=== PATIENT | female | born 1965 | race Hispanic/Latino ===

== ENCOUNTER 2017-11-03 18:02 | Emergency (ER) | payer SELFPAY ==
[2017-11-03] MEDS ORDERED: HYDROCODONE/APAP 7.5/325 MG TAB ONE (18:52)
[2017-11-03] MEDS ORDERED: IBUPROFEN 400 MG TAB ONE ×2 (18:52→19:28)
--- NOTE | 2017-11-03 19:08 | RAD REPORT ---
EXAM DESCRIPTION: RAD - Knee Left 3 View - 11/03/2017 6:59 pm CLINICAL HISTORY: Left knee pain FINDINGS: Marked osteoarthritis involves the medial compartment consisting of bone on bone and osteo phytes. A small joint effusion is suspected. An 11 millimeter bony/calcific density inferior to the patella likely represents a loose body. No acute fracture or dislocation is seen . . Edema is present within the subcutaneous tissues
--- NOTE | 2017-11-03 20:05 | RAD REPORT ---
EXAM DESCRIPTION: [facility] [employer]11/03/2017 7:14 pm CLINICAL HISTORY: left leg pain COMPARISON: None. FINDINGS: Left common femoral, superficial femoral, popliteal and posterior tibial veins are compre ssible and demonstrate augmentation. Doppler demonstrates good flow. IMPRESSION: No evidence of deep venous thrombosis involving the left lower extremity.
--- NOTE | 2017-11-03 20:24 | EDPHYS ---
Physician Documentation [facility] Name: Reena Mclean Age: 52 yrs Sex: Female : 1965 Arrival Date: 11/03/2017 Time: 18:05 Bed 23 Private MD: None, None ED Physician Gonzalo Zhao HPI: 11/03 18:19 This 52 yrs old Female presents to ER via Unassigned with complaints of Knee cp Pain. 18:19 The patient presents with pain, that is chronic. cp 18:19 The complaints affect the left knee. Context: the patient can partially bear weight, cp the patient is able to ambulate, with moderate difficulty, Problem is a result from a previous injury: No. Onset: The symptoms/episode began/occurred gradually, and became worse today. Associated signs and symptoms: Pertinent negatives calf tenderness, fever, warmth, injury. Treatment prior to arrival includes: no previous treatment. 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 - Social history:: Smoking status: Patient/guardian denies using tobacco. - Ebola Screening: : Patient negative for fever greater than or equal to 101.5 degrees Fahrenheit, and additional compatible Ebola Virus Disease symptoms Patient denies exposure to infectious person Patient denies travel to an Ebola-affected area in the 21 days before illness onset No symptoms or risks identified at this time. ROS: 18:25 Constitutional: Negative for body aches, chills, fever, poor PO intake. cp 18:25 Eyes: Negative for injury, pain, redness, and discharge. cp 18:25 ENT: Negative for drainage from ear(s), ear pain, sore throat, difficulty swallowing, difficulty handling secretions. 18:25 Cardiovascular: Negative for chest pain, edema, palpitations. 18:25 Respiratory: Negative for cough, shortness of breath, wheezing. 18:25 Abdomen/GI: Negative for abdominal pain, nausea, vomiting, and diarrhea. 18:25 MS/extremity: Positive for pain, swelling, tenderness, of the left knee, Negative for injury or acute deformity, decreased range of motion, paresthesias, rash, warmth. 18:25 Skin: Negative for cellulitis, rash. 18:25 Neuro: Negative for altered mental status, headache, weakness. 18:25 All other systems are negative. Exam: 18:30 Constitutional: The patient appears in no acute distress, alert, awake, non-toxic, well cp developed, well nourished, obese. 18:30 Head/Face: Normocephalic, atraumatic. cp 18:30 Eyes: Periorbital structures: appear normal, Conjunctiva: normal, no exudate, no injection, Sclera: no appreciated abnormality, Lids and lashes: appear normal, bilaterally. 18:30 ENT: External ear(s): are unremarkable, Nose: is normal, Mouth: Lips: moist, Oral mucosa: moist, Posterior pharynx: is normal, airway is patent, no erythema, no exudate. 18:30 Chest/axilla: Inspection: normal, Palpation: is normal, no crepitus, no tenderness. 18:30 Cardiovascular: Rate: normal, Rhythm: regular. 18:30 Respiratory: the patient does not display signs of respiratory distress, Respirations: normal, no use of accessory muscles, no retractions, no splinting, no tachypnea, labored breathing, is not present, Breath sounds: are clear throughout, no decreased breath sounds, no stridor, no wheezing. 18:30 Abdomen/GI: Inspection: obese Bowel sounds: active, all quadrants, Palpation: abdomen is soft and non-tender, in all quadrants. 18:30 Back: pain, is absent, ROM is normal. 18:30 Musculoskeletal/extremity: ROM: limited passive range of motion due to pain, in the left knee, Joints: All joints are normal except the left knee displays pain at rest, painful range of motion, swelling, tenderness. 18:30 Skin: cellulitis, is not appreciated, no rash present. Vital Signs: 18:24 BP 147 / 76; Pulse 96; Resp 22; Temp 98.5; Pulse Ox 95% on R/A; Weight 149.69 kg; ch Height 5 ft. (152.40 cm); Pain 10/10; 19:24 BP 116 / 73; Pulse 88; Resp 18; Pulse Ox 100% on R/A; Pain 9/10; bs1 20:24 BP 130 / 76; Pulse 89; Resp 19; Temp 98(O); Pulse Ox 100% on R/A; Pain 7/10; bs1 18:24 Body Mass Index 64.45 (149.69 kg, 152.40 cm) ch MDM: 18:13 Patient medically screened. cp 18:30 Differential diagnosis: dislocation, closed fracture, tendonitis, effusion. 11/03 18:19 Order name: XRAY Knee LEFT 3 view; Complete Time: 20:01 cp 11/03 18:19 Order name: US Extremity Venous Unilateral Ltd; Complete Time: 20:12 cp 11/03 20:12 Interpretation: Report reviewed. 11/03 18: Order name: Urine Dipstick-Ancillary (obtain specimen) cp 11/03 18: Order name: Urine Test (obtain specimen) 11/03 20:12 Order name: Torrey wrap-joint; Complete Time: 20:40 cp 11/03 20:12 Order name: Crutches; Complete Time: 20:40 cp Administered Medications: 18:51 Drug: Argyle (7.5 mg-325 mg) 1 tabs Route: PO; kr2 20:40 Follow up: Response: No adverse reaction bs1 18:51 Drug: Ibuprofen 800 mg Route: PO; kr2 20:40 Follow up: Response: No adverse reaction bs1 Disposition: 11/03/17 20:23 Discharged to Home. Impression: Pain in left knee. - Condition is Stable. - Discharge Instructions: Elastic Bandage and RICE, Knee Pain. - Prescriptions for Diclofenac Sodium 75 mg Oral Tablet, Delayed Release (E.C.) - take 1 tablet by ORAL route 2 times per day; 20 tablet. Tramadol 50 mg Oral Tablet - take 1 tablet by ORAL route every 8 hours as needed; 15 tablet. - Medication Reconciliation Form, Thank You Letter, Antibiotic Education, Prescription Opioid Use form. - Follow up: Dyllan Lockwood MD; When: 2 - 3 days; Reason: Recheck today's complaints. - Problem is new. - Symptoms have improved. Addendum: 11/05/2017 20:01 Co-signature as Attending Physician, Gonzalo Zhao MD I agree with the assessment and w a plan of care. Signatures: Dispatcher [employer] EDMS Lacy Baxter, RN RN Grabiel Victor PA PA cp Gonzalo Zhao MD MD wa Reaves, Karey RN RN kr2 Lluvia Briceno RN RN bs1 Corrections: (The following items were deleted from the chart) 11/03 20:43 20:23 11/03/2017 20:23 Discharged to Home. Impression: Pain in left knee. Condition is bs1 Stable. Forms are Medication Reconciliation Form, Thank You Letter, Antibiotic Education, Prescription Opioid Use. Follow up: Dyllan Lockwood; When: 2 - 3 days; Reason: Recheck today's complaints. Problem is new. Symptoms have improved. cp
--- NOTE | 2017-11-03 20:24 | ER ---
Nurse's Notes [facility] Name: Reena Mclean Age: 52 yrs Sex: Female : 1965 Arrival Date: 11/03/2017 Time: 18:05 Bed 23 Private MD: None, None Diagnosis: Pain in left knee Presentation: 11/03 18:21 Presenting complaint: Patient states: L knee pain for years, worse today. pt states she ch knows its because she is overweight and needs a knee replacement. Transition of care: patient was not received from another setting of care. Onset of symptoms was 2015. Risk Assessment: Do you want to hurt yourself or someone else? Patient reports no desire to harm self or others. Initial Sepsis Screen: Does the patient meet any 2 criteria? No. Patient's initial sepsis screen is negative. Does the patient have a suspected source of infection? No. Patient's initial sepsis screen is negative. Care prior to arrival: None. 18:21 Method Of Arrival: Ambulatory 18:21 Acuity: MONSERRAT 4 Triage Assessment: 18:24 General: Appears in no apparent distress. comfortable, Behavior is calm, cooperative, ch appropriate for age. Pain: Complains of pain in left knee. 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 - Social history:: Smoking status: Patient/guardian denies using tobacco. - Ebola Screening: : Patient negative for fever greater than or equal to 101.5 degrees Fahrenheit, and additional compatible Ebola Virus Disease symptoms Patient denies exposure to infectious person Patient denies travel to an Ebola-affected area in the 21 days before illness onset No symptoms or risks identified at this time. Screenin:27 Abuse screen: Denies threats or abuse. Denies injuries from another. Nutritional screening: No deficits noted. Tuberculosis screening: No symptoms or risk factors identified. Fall Risk None identified. Assessment: 18:27 Reassessment: Patient appears in no apparent distress at this time. Patient and/or ch family updated on plan of care and expected duration. Pain level reassessed. Patient is alert, oriented x 3, equal unlabored respirations, skin warm/dry/pink. 19:10 Reassessment: Patient appears in no apparent distress at this time. Patient and/or bs1 family updated on plan of care and expected duration. Pain level reassessed. Report received from [facility]. 19:10 Pain: Complains of pain in left knee. Neuro: Level of Consciousness is awake, alert, bs1 obeys commands. Cardiovascular: Denies chest pain, shortness of breath, Heart tones S1 S2 present Capillary refill < 3 seconds Patient's skin is warm and dry. Respiratory: Airway is patent. GI: No signs and/or symptoms were reported involving the gastrointestinal system. : No signs and/or symptoms were reported regarding the genitourinary system. EENT: No signs and/or symptoms were reported regarding the EENT system. Derm: Skin is intact. Musculoskeletal: Circulation, motion, and sensation intact. Capillary refill < 3 seconds, Range of motion: intact in all extremities. 20:30 Reassessment: Patient appears in no apparent distress at this time. Patient and/or bs1 family updated on plan of care and expected duration. Pain level reassessed. Patient is alert, oriented x 3, equal unlabored respirations, skin warm/dry/pink. Crutches given to patient and wrapped patients left leg with linh wrap. Tolerated well. Vital Signs: 18:24 BP 147 / 76; Pulse 96; Resp 22; Temp 98.5; Pulse Ox 95% on R/A; Weight 149.69 kg; Height 5 ft. (152.40 cm); Pain 10/10; 19:24 BP 116 / 73; Pulse 88; Resp 18; Pulse Ox 100% on R/A; Pain 9/10; bs1 20:24 BP 130 / 76; Pulse 89; Resp 19; Temp 98(O); Pulse Ox 100% on R/A; Pain 7/10; bs1 18:24 Body Mass Index 64.45 (149.69 kg, 152.40 cm) ED Course: 18:05 Patient arrived in ED. sb2 18:05 None, None is Private Physician. sb2 18:13 Grabiel Jacobson PA is PHCP. cp 18:13 Gonzalo Zhao MD is Attending Physician. cp 18:21 Lacy Baxter, RN is Primary Nurse. ch 18:22 Triage completed. ch 18:24 Arm band placed on left wrist. Patient placed in an exam room, on a stretcher, on pulse ch oximetry. 18:27 No apparent distress. Resting quietly. ch 18:27 Patient has correct armband on for positive identification. Bed in low position. Call light in reach. Side rails up X2. Pulse ox on. NIBP on. Warm blanket given. 18:27 No provider procedures requiring assistance completed. ch 18:56 X-ray completed. Portable x-ray completed in exam room. Patient tolerated procedure kp1 well. 18:59 XRAY Knee LEFT 3 view In Process Unspecified. EDMS 19:14 US Extremity Venous Unilateral Ltd In Process Unspecified. EDMS 20:23 Dyllan Lockwood MD is Referral Physician. cp 20:43 Patient did not have IV access during this emergency room visit. bs1 Administered Medications: 18:51 Drug: Birchleaf (7.5 mg-325 mg) 1 tabs Route: PO; kr2 20:40 Follow up: Response: No adverse reaction bs1 18:51 Drug: Ibuprofen 800 mg Route: PO; kr2 20:40 Follow up: Response: No adverse reaction bs1 Outcome: 20:23 Discharge ordered by MD. cp 20:42 Discharged to home via wheelchair, with crutches, with family. bs1 20:42 Condition: stable 20:42 Discharge instructions given to patient, Instructed on discharge instructions, follow up and referral plans. medication usage, Demonstrated understanding of instructions, follow-up care, medications, Prescriptions given X 2. 20:43 Patient left the ED. bs1 Signatures: Dispatcher [employer] EDOK Lacy Baxter, RN RN Grabiel Victor PA PA Elizabeth Baeza kp1 Shraddha Low RN RN michael2 Lluvia Briceno RN RN bs1 Esperanza Conklin sb2 Corrections: (The following items were deleted from the chart) 20:43 20:30 Reassessment: Crutches given to patient and wrapped patients left leg with linh bs1 wrap. Tolerated well. bs1
[2017-11-03 21:07] VITALS: O2SAT 100
[2017-11-03 21:08] VITALS: BP 130/76; TEMP 98
== END 2017-11-03 20:43 | disposition home or self-care (01) ==
LOC: ER 18:02
DX: M25.562 Pain in left knee (principal)
CPT/HCPCS: 93971; 99284

== ENCOUNTER 2018-07-21 21:49 | Emergency (ER) | payer SELFPAY ==
[2018-07-22] MEDS ORDERED: MORPHINE 2 MG/ML SYR ONE (00:08)
[2018-07-22] MEDS ORDERED: NA CHLORIDE 0.9% 1,000 ML ONE (00:08)
[2018-07-22 00:45] LABS: Absolute Lymphocytes (CBC) 0.9 K/uL (0.7-4.9); Absolute Monocytes 1.3 K/uL (0.1-1.3); Absolute Neutrophil 16.2 K/uL (1.8-8.0); Basophils % 0.5 % (0-1.3); Eosinophils % 0.1 % (0-4.4); Hematocrit 39.4 % (36.0-45.0); MPV 8.5 fL (7.6-11.3); RBC Red Blood Cell Count 4.49 M/uL (3.86-4.86)
[2018-07-22 00:56] LABS: Albumin 3.6 g/dL (3.4-5.0); Bilirubin Direct 0.2 mg/dL (0-0.2); Bilirubin Total 0.7 mg/dL (0.2-1.0); Potassium 4.1 mmol/L (3.5-5.1); Protein, Total 7.9 g/dL (6.4-8.2)
[2018-07-22 02:42] LABS: Blood Morphology Comment NOT SEEN (NOT SEEN); Platelet Estimate ADEQ
[2018-07-22] MEDS ORDERED: CEFTRIAXONE/SWI 1gm 1 GM/10 ML SYR ONE (03:29)
[2018-07-22 03:56] LABS: Urine Blood 3+ (NEG); Urine Glucose NEGATIVE (NEG); Urine Protein 3+ (NEG); Urine Specific Gravity 1.025 (1.005-1.030); Urine pH 5.5 (5.0-7.0)
[2018-07-22 03:56] LABS: Urine Culture Reflex Order NOT NEEDED
--- NOTE | 2018-07-22 03:59 | ER ---
Nurse's Notes [facility] Name: Reena Mclean Age: 53 yrs Sex: Female : 1965 Arrival Date: 07/21/2018 Time: 21:51 Bed 15 Private MD: Diagnosis: Urinary tract infection, site not specified Presentation: 07/21 22:28 Presenting complaint: Patient states: "I got the chills real bad and I am having a real jd3 bad headache and my back hurts to breath sometimes.". Transition of care: patient was not received from another setting of care. Onset of symptoms was July 21, 2018. Risk Assessment: Do you want to hurt yourself or someone else? Patient reports no desire to harm self or others. Initial Sepsis Screen: Does the patient meet any 2 criteria? No. Patient's initial sepsis screen is negative. Does the patient have a suspected source of infection? No. Patient's initial sepsis screen is negative. Care prior to arrival: None. 22:28 Method Of Arrival: Ambulatory j 22:28 Acuity: MONSERRAT 3 jd3 Triage Assessment: 23:30 Respiratory: the patient has mild shortness of breath. 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 - Social history:: Smoking status: Patient/guardian denies using tobacco. - Ebola Screening: : Patient negative for fever greater than or equal to 101.5 degrees Fahrenheit, and additional compatible Ebola Virus Disease symptoms. Screenin/05 00:00 Abuse screen: Denies threats or abuse. Denies injuries from another. Nutritional rr5 screening: No deficits noted. Tuberculosis screening: No symptoms or risk factors identified. Fall Risk IV access (20 points). Total Gonsalez Fall Scale indicates No Risk (0-24 pts). Assessment: 07/21 23:10 General: Appears in no apparent distress. uncomfortable, Behavior is calm, cooperative, rr5 appropriate for age. Pain: Complains of pain in head and back Pain does not radiate. Pain currently is 9 out of 10 on a pain scale. Quality of pain is described as aching, Pain began gradually, Is intermittent. 23:10 Neuro: Level of Consciousness is awake, alert, obeys commands, Oriented to person, rr5 place, time, situation, Appropriate for age. Cardiovascular: Capillary refill < 3 seconds Patient's skin is warm and dry. Pulses are all present. Rhythm is sinus tachycardia. Respiratory: Reports shortness of breath Airway is patent Respiratory effort is even, unlabored, Respiratory pattern is tachypnea Breath sounds are clear. GI: No signs and/or symptoms were reported involving the gastrointestinal system. : No signs and/or symptoms were reported regarding the genitourinary system. EENT: No signs and/or symptoms were reported regarding the EENT system. Derm: Skin is intact, Skin temperature is warm. Musculoskeletal: Circulation, motion, and sensation intact. Capillary refill < 3 seconds, Range of motion: limited in left knee. 23:10 GI: Abdomen is obese, protruded umbilicus noted. rr5 04 00:10 Reassessment: Patient appears in no apparent distress at this time. Patient is alert, rr5 oriented x 3, equal unlabored respirations, skin warm/dry/pink. awaiting for result. Patient states symptoms have improved. 01:05 Reassessment: Patient appears in no apparent distress at this time. Patient is alert, rr5 oriented x 3, equal unlabored respirations, skin warm/dry/pink. much better now. 02:15 Reassessment: Patient appears in no apparent distress at this time. Patient is alert, rr5 oriented x 3, equal unlabored respirations, skin warm/dry/pink. asleep on bed comfortably. 03:35 Reassessment: Patient appears in no apparent distress at this time. Patient is alert, rr5 oriented x 3, equal unlabored respirations, skin warm/dry/pink. awaiting for CT result. 04:09 Reassessment: Patient appears in no apparent distress at this time. Patient is alert, rr5 oriented x 3, equal unlabored respirations, skin warm/dry/pink. no nausea or vomiting noted.discharge instruction given and explained without complaints made. Patient states feeling better. Patient states symptoms have improved. Vital Signs: 07/21 22:31 BP 124 / 70; Pulse 129; Resp 22 S; Temp 99.0(TE); Pulse Ox 95% on R/A; Weight 149.69 kg jd3 (R); Height 5 ft. 0 in. (152.40 cm) (R); Pain 9/10; 07/22 00:00 BP 112 / 63; Pulse 100; Resp 17; Pulse Ox 99% ; rr5 01:00 BP 97 / 64; Pulse 103; Resp 19; Pulse Ox 99% ; rr5 01:50 BP 108 / 63; Pulse 96; Resp 20; Pulse Ox 100% ; rr5 02:30 BP 94 / 62; Pulse 94; Resp 17; Pulse Ox 99% ; rr5 03:00 BP 105 / 71; Pulse 91; Resp 18; Pulse Ox 100% ; rr5 04:00 BP 105 / 73; Pulse 83; Resp 19; Pulse Ox 99% ; rr5 07/21 22:31 Body Mass Index 64.45 (149.69 kg, 152.40 cm) jd3 ED Course: 07/21 21:51 Patient arrived in ED. am2 22:29 Triage completed. jd3 22:32 Arm band placed on Patient notified of wait time. jd3 23:06 Filiberto Crowley RN is Primary Nurse. rr5 23:11 Grabiel Jacobson PA is PHCP. cp 23:11 Ezequiel Adler MD is Attending Physician. cp 23:30 Patient has correct armband on for positive identification. Placed in gown. Bed in low rr5 position. Call light in reach. Side rails up X2. teletypesetter monitor on. Pulse ox on. NIBP on. 23:55 Inserted saline lock: 20 gauge in right forearm, using aseptic technique. Blood rr5 collected. 07/22 03:14 CT completed. Pt tolerated procedure poorly. Patient moved to CT via stretcher. Patient eh moved back from CT. 03:33 CT Abd/Pelvis - W/Contrast: give oral contrast In Process Unspecified. EDMS 04:12 No provider procedures requiring assistance completed. IV discontinued, intact, rr5 bleeding controlled, No redness/swelling at site. Pressure dressing applied. Administered Medications: 07/21 23:55 Drug: NS 0.9% 1000 ml Route: IV; Rate: 1 bolus; Site: right forearm; rr5 07/22 01:30 Follow up: Response: No adverse reaction; IV Status: Completed infusion; IV Intake: rr5 1000ml 00:00 Drug: morphine 2 mg Route: IVP; Site: right forearm; rr5 03:27 Follow up: Response: No adverse reaction rr5 03:27 Drug: Rocephin - (cefTRIAXone) 2 grams Route: IVPB; Infused Over: 30 mins; Site: right rr5 forearm; 04:10 Follow up: Response: No adverse reaction; IV Status: Completed infusion rr5 Intake: 01:30 IV: 1000ml; Total: 1000ml. rr5 Outcome: 03:58 Discharge ordered by MD. cp 04:12 Discharged to home ambulatory. rr5 04:12 Condition: stable 04:12 Discharge instructions given to patient, Instructed on discharge instructions, follow up and referral plans. medication usage, Demonstrated understanding of instructions, follow-up care, medications, Prescriptions given X 3. 04:21 Patient left the ED. rr5 Addendum: 07/24/2018 08:50 Addendum: Culture Results: Positive urine culture. No further action required. Bacteria h b sensitive to prescribed antibiotic. 07/25/2018 07:47 Addendum: Culture Results: Positive blood culture. No further action required. Bacteria i w sensitive to prescribed antibiotic. Signatures: Dispatcher [employer] Shawn Epstein Irene, RN RN iw Page, Corey, PA PA cp Baxter, Heather, RN RN hb Moreno, Amanda am2 Davies, Jonathon, RN RN jd3 Filiberto Crowley RN RN rr5 Corrections: (The following items were deleted from the chart) 07/21 22:32 22:28 Presenting complaint: Patient states: "I got the chills real bad and I am having jd3 a real bad headache and my back hurts to breath sometimes." jd3 07/22 04:12 03:00 Reassessment: Patient appears in no apparent distress at this time. Patient is rr5 alert, oriented x 3, equal unlabored respirations, skin warm/dry/pink. awaiting for CT result. rr5
[2018-07-22 04:00] LABS: Urine Bacteria >50 /HPF (<20)
--- NOTE | 2018-07-22 04:00 | EDPHYS ---
Physician Documentation [facility] Name: Reena Mclean Age: 53 yrs Sex: Female : 1965 Arrival Date: 07/21/2018 Time: 21:51 Bed 15 Private MD: ED Physician Ezequiel Adler HPI: 07/21 23:45 This 53 yrs old Female presents to ER via Ambulatory with complaints of cp abdominal pain. 07/22 03:45 The patient presents with abdominal pain in the lower abdomen, right lower quadrant. cp Onset: The symptoms/episode began/occurred today. The symptoms radiate to right back. Associated signs and symptoms: Pertinent positives: fever, Pertinent negatives: blood in stools, constipation, vomiting. Severity of pain: in the emergency department the pain is unchanged despite home interventions. 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 - Social history:: Smoking status: Patient/guardian denies using tobacco. - Ebola Screening: : Patient negative for fever greater than or equal to 101.5 degrees Fahrenheit, and additional compatible Ebola Virus Disease symptoms. ROS: 23:52 Eyes: Negative for injury, pain, redness, and discharge. cp 23:52 Constitutional: Positive for chills, Negative for body aches, fever, poor PO intake. 23:52 Neck: Negative for pain with movement, pain at rest, stiffness. 23:52 Cardiovascular: Negative for chest pain, palpitations. 23:52 Respiratory: Negative for cough, wheezing. 23:52 Abdomen/GI: Positive for abdominal pain, Negative for vomiting, diarrhea, constipation, black/tarry stool, rectal bleeding. 23:52 Back: Positive for radiated pain. 23:52 : Negative for urinary symptoms, vaginal bleeding, vaginal discharge. 23:52 Skin: Negative for rash. 23:52 Neuro: Positive for headache, Negative for altered mental status, weakness. 23:52 All other systems are negative. Exam: 23:57 Constitutional: The patient appears in no acute distress, alert, awake, non-toxic, well cp developed, well nourished, morbid obesity 23:57 Head/Face: Normocephalic, atraumatic. Eyes: Pupils equal round and reactive to light, cp extra-ocular motions intact. Lids and lashes normal. Conjunctiva and sclera are non-icteric and not injected. Cornea within normal limits. Periorbital areas with no swelling, redness, or edema. ENT: Nares patent. No nasal discharge, no septal abnormalities noted. Tympanic membranes are normal and external auditory canals are clear. Oropharynx with no redness, swelling, or masses, exudates, or evidence of obstruction, uvula midline. Mucous membranes moist. Neck: Trachea midline, no thyromegaly or masses palpated, and no cervical lymphadenopathy. Supple, full range of motion without nuchal rigidity, or vertebral point tenderness. No Meningismus. Chest/axilla: Normal chest wall appearance and motion. Nontender with no deformity. No lesions are appreciated. 23:57 Cardiovascular: Rate: tachycardic, Rhythm: regular, Edema: is not appreciated, JVD: is not appreciated. 23:57 Respiratory: the patient does not display signs of respiratory distress, Respirations: normal, no use of accessory muscles, no retractions, no splinting, no tachypnea, labored breathing, is not present, Breath sounds: are clear throughout, no decreased breath sounds, no stridor, no wheezing. 23:57 Abdomen/GI: Inspection: obese Bowel sounds: active, all quadrants, Palpation: soft, in all quadrants, moderate abdominal tenderness, in the posterior aspect of right lateral abdomen, anterior aspect of right lateral abdomen and right lower quadrant, rebound tenderness, is not appreciated, voluntary guarding, is elicited in the posterior aspect of right lateral abdomen, anterior aspect of right lateral abdomen and right lower quadrant, Hernia: noted in the umbilical area, tenderness, that is moderate. 23:57 Skin: cellulitis, is not appreciated. 23:57 Neuro: Orientation: to person, place \T\ time. Mentation: is normal, Cerebellar function: is grossly normal, Motor: moves all fours, strength is normal, Sensation: is normal. Vital Signs: 22:31 BP 124 / 70; Pulse 129; Resp 22 S; Temp 99.0(TE); Pulse Ox 95% on R/A; Weight 149.69 kg jd3 (R); Height 5 ft. 0 in. (152.40 cm) (R); Pain 9/10; 07/22 00:00 BP 112 / 63; Pulse 100; Resp 17; Pulse Ox 99% ; rr5 01:00 BP 97 / 64; Pulse 103; Resp 19; Pulse Ox 99% ; rr5 01:50 BP 108 / 63; Pulse 96; Resp 20; Pulse Ox 100% ; rr5 02:30 BP 94 / 62; Pulse 94; Resp 17; Pulse Ox 99% ; rr5 03:00 BP 105 / 71; Pulse 91; Resp 18; Pulse Ox 100% ; rr5 04:00 BP 105 / 73; Pulse 83; Resp 19; Pulse Ox 99% ; rr5 07/21 22:31 Body Mass Index 64.45 (149.69 kg, 152.40 cm) jd3 MDM: 07/21 23:11 Patient medically screened. cp 07/22 00:00 Differential diagnosis: appendicitis, bowel obstruction, cholecystitis, Cholelithiasis, cp pancreatitis, Pyelonephritis, Ureterolithiasis, urinary tract infection, incarcerated hernia. 03:58 Data reviewed: vital signs, nurses notes, lab test result(s), radiologic studies, CT cp scan. 03:58 Counseling: I had a detailed discussion with the patient and/or guardian regarding: the cp historical points, exam findings, and any diagnostic results supporting the discharge/admit diagnosis, lab results, radiology results, to return to the emergency department if symptoms worsen or persist or if there are any questions or concerns that arise at home. Response to treatment: the patient's symptoms have markedly improved after treatment, and as a result, I will discharge patient. ED course: VSS. Pain markedly improved. Will discharge to home for continued monitoring. 07/21 23:40 Order name: Basic Metabolic Panel; Complete Time: 01:36 cp 07/22 01:36 Interpretation: Normal except: GLUC 136; GFR 66. cp 07/21 23:40 Order name: CBC with Diff; Complete Time: 03:24 cp 07/22 01:37 Interpretation: Normal except: WBC 18.5; MALACHI% 87.4; LYM% 5.0; NEUT A 16.2. cp 07/21 23:40 Order name: Creatinine for Radiology; Complete Time: 01:36 cp 07/21 23:40 Order name: Hepatic Function; Complete Time: 01:36 cp 07/22 03:52 Interpretation: Normal except: ALK 123; GLOB 4.3; A/G 0.8. cp 07/21 23:40 Order name: Lipase; Complete Time: 01:36 cp 07/21 23:40 Order name: Urine Microscopic Only cp 07/21 23:40 Order name: Magnesium; Complete Time: 01:36 cp 07/21 23:40 Order name: Procalcitonin; Complete Time: 01:36 cp 07/21 23:40 Order name: Lactate; Complete Time: 01:36 cp 07/21 23:40 Order name: Blood Culture Adult (2) cp 07/22 00:52 Order name: Manual Differential; Complete Time: 03:24 EDMS 07/22 03:52 Interpretation: Normal except: SEGS 86; LYM 5. cp 07/22 02:13 Order name: Urine Dipstick--Ancillary (enter results) cm6 07/22 02:13 Order name: Urine --Ancillary (enter results); Complete Time: 03:58 cm6 07/22 02:13 Order name: Urine Culture cm6 07/21 23:40 Order name: IV Saline Lock; Complete Time: 00:21 cp 07/21 23:40 Order name: Labs collected and sent; Complete Time: 00:21 cp 07/21 23:40 Order name: Urine Dipstick-Ancillary (obtain specimen); Complete Time: 02:09 cp 07/21 23:40 Order name: Urine Test (obtain specimen); Complete Time: 02:09 cp 07/22 00:16 Order name: CT Abd/Pelvis - W/Contrast: give oral contrast cp 07/22 02:14 Order name: Urine Dipstick-Ancillary; Complete Time: 03:58 EDMS 07/22 03:58 Interpretation: Normal except: UBLD 3+; UPROT 3+; U NIT POSITIVE; UESTR 3+. cp 07/22 03:53 Order name: PO challenge; Complete Time: 04:07 cp Administered Medications: 07/21 23:55 Drug: NS 0.9% 1000 ml Route: IV; Rate: 1 bolus; Site: right forearm; rr5 07/22 01:30 Follow up: Response: No adverse reaction; IV Status: Completed infusion; IV Intake: rr5 1000ml 00:00 Drug: morphine 2 mg Route: IVP; Site: right forearm; rr5 03:27 Follow up: Response: No adverse reaction rr5 03:27 Drug: Rocephin - (cefTRIAXone) 2 grams Route: IVPB; Infused Over: 30 mins; Site: right rr5 forearm; 04:10 Follow up: Response: No adverse reaction; IV Status: Completed infusion rr5 Disposition: 07/22/18 03:58 Discharged to Home. Impression: Urinary tract infection, site not specified. - Condition is Stable. - Discharge Instructions: Urinary Tract Infection, Adult. - Prescriptions for Augmentin 875- 125 mg Oral Tablet - take 1 tablet by ORAL route every 12 hours for 10 days; 20 tablet. Ibuprofen 800 mg Oral Tablet - take 1 tablet by ORAL route every 8 hours As needed take with food; 30 tablet. Zofran 4 mg Oral Tablet - take 1 tablet by ORAL route every 12 hours As needed; 20 tablet. - Medication Reconciliation Form, Thank You Letter, Antibiotic Education, Prescription Opioid Use, Family Work Release form. - Follow up: Private Physician; When: 2 - 3 days; Reason: Recheck today's complaints. - Problem is new. - Symptoms have improved. Signatures: Dispatcher [employer] EDMS Grabiel Jacobson PA PA cp Davies, Jonathon, RN RN jd3 Ezequiel Adler MD MD ma2 Filiberto Crowley RN RN rr5 Corrections: (The following items were deleted from the chart) 04:21 03:58 07/22/2018 03:58 Discharged to Home. Impression: Urinary tract infection, site rr5 not specified. Condition is Stable. Forms are Medication Reconciliation Form, Thank You Letter, Antibiotic Education, Prescription Opioid Use. Follow up: Private Physician; When: 2 - 3 days; Reason: Recheck today's complaints. Problem is new. Symptoms have improved. cp
[2018-07-22 04:25] VITALS: TEMP 99
[2018-07-22 04:32] VITALS: BP 105/73; O2SAT 99
--- NOTE | 2018-07-22 11:10 | RAD REPORT ---
EXAM DESCRIPTION: CT - Abdomen Pelvis W Contrast - 07/22/2018 5:10 am CLINICAL HISTORY: The patient is 53 years old and is Female; lower abdomen pain TECHNIQUE: Axial computed tomography images of the abdomen and pelvis with intravenous contrast. S agittal and coronal reformatted images were created and reviewed. This CT exam was performed using one or more of the following dose reduction techniques: automated exposure control, adjustment of t he mA and/or kV according to patient size, and/or use of iterative reconstruction technique. COMPARISON: None. FINDINGS: LUNG BASES: Unremarkable. No mass. No consolidation. ABDOMEN: LIVER: Advanced diffuse hepatic steatosis. GALLBLADDER AND BILE DUCTS: Contracted gallbladder. No calcified stones. No ductal dilation. PANCREAS: Unremarkable. No mass. No ductal dilation. SPLEEN: Unremarkable. No splenomegaly. ADRENALS: Unremarkable. No mass. KIDNEYS AND URETERS: Unremarkable. No solid mass. No hydronephrosis. STOMACH AND BOWEL: Enteric contrast is seen throughout the small bowel. The large bowel is not opa cified. No mucosal thickening. PELVIS: APPENDIX: The appendix is seen and is within normal limits. BLADDER: Bladder is decompressed. REPRODUCTIVE: 1.7 cm left ovarian dominant follicle. 1.7 cm cyst in the lower uterine segment, likely nabothian cyst. ABDOMEN and PELVIS: INTRAPERITONEAL SPACE: Unremarkable. No free air. No significant fluid collection. BONES/JOINTS: Grade 1 anterolisthesis of L5 on S1 with spondylolysis basis. Vacuum phenomenon at L 5-S1. No acute fracture. No dislocation. SOFT TISSUES: Mild diastasis of the rectus abdominis measuring approximately 0.2 cm. Large fat-containing ventral hernia. VASCULATURE: Unremarkable. No abdominal aortic aneurysm. LYMPH NODES: Unremarkable. No enlarged lymph nodes. IMPRESSION: 1. No acute abdominal or pelvic abnormality. 2. Advanced diffuse hepatic steatosis. Contracted gallbladder. 3. Fat-containing ventral hernia. 4. 1.7 cm left ovarian dominant follicle. 5. Grade 1 anterolisthesis of L5 on S1 with spondylolysis basis. Electronically signed by: Vishal Saul DO 07/22/2018 3:41 AM CDT Due to temporary technical issues with the PACS/Fluency reporting system, reports are being signed by the in house radiologist as a courtesy to ensure prompt reporting. The interpreting radiologist is f grupoly responsible for the content of the report.
== END 2018-07-22 04:21 | disposition home or self-care (01) ==
LOC: ER 21:49
DX: N39.0 Urinary tract infection, site not specified (principal); F41.9 Anxiety disorder, unspecified
CPT/HCPCS: 36415; 74177; 80048; 80076; 81003; 81015; 81025; 83605; 83690; 83735; 84145; 85025; 87040; 87077; 87086; 87088; 87186; 87205; 96361; 96365; 96375; 99285; J0696; J2270; J7030; Q9967

== ENCOUNTER 2019-09-30 00:10 | Emergency (ER) | payer SELFPAY ==
[2019-09-30] MEDS ORDERED: DIPHENHYDRAMINE 50 MG/ML VIAL ONE (00:43)
[2019-09-30] MEDS ORDERED: ACETAMINOPHEN 500 MG TAB ONE (00:43)
[2019-09-30] MEDS ORDERED: ONDANSETRON 4 MG/2 ML VIAL ONE (00:43)
[2019-09-30] MEDS ORDERED: KETOROLAC 30 MG/ML INJ ONE (00:51)
[2019-09-30 01:05] LABS: Absolute Lymphocytes (CBC) 0.8 K/uL (0.7-4.9); Basophils % 0.6 % (0-1.3); Hematocrit 37.7 % (36.0-45.0); Lymphocytes % 5.9 % (15.3-44.8); RBC Red Blood Cell Count 4.27 M/uL (3.86-4.86)
[2019-09-30 01:12] LABS: Albumin 2.9 g/dL (3.4-5.0); Bilirubin Total 0.8 mg/dL (0.2-1.0); Potassium 3.9 mmol/L (3.5-5.1); Protein, Total 7.3 g/dL (6.4-8.2)
[2019-09-30] MEDS ORDERED: NA CHLORIDE 0.9% 1,000 ML ONE (01:31)
--- NOTE | 2019-09-30 01:32 | ER ---
Nurse's Notes [facility] Name: Reena Mclean Age: 54 yrs Sex: Female : 1965 Arrival Date: 09/30/2019 Time: 00:13 Bed 5 Private MD: Diagnosis: Headache;Vomiting Presentation: 09/29 00:14 Acuity: MONSERRAT 3 sg 00:14 Chief complaint: Patient states: pt complaining of headache, frontal area, reports sg sensitivity to light as well, as having nausea and vomiting. Coronavirus screen: Proceed with normal triage. Ebola Screen: Patient negative for fever greater than or equal to 101.5 degrees Fahrenheit, and additional compatible Ebola Virus Disease symptoms Patient denies exposure to infectious person. Patient denies travel to an Ebola-affected area in the 21 days before illness onset. No symptoms or risks identified at this time. Initial Sepsis Screen: Does the patient meet any 2 criteria? No. Patient's initial sepsis screen is negative. Does the patient have a suspected source of infection? No. Patient's initial sepsis screen is negative. Risk Assessment: Do you want to hurt yourself or someone else? Patient reports no desire to harm self or others. Onset of symptoms was September 30, 2019. Care prior to arrival: None. Transition of care: patient was not received from another setting of care. 00:14 Method Of Arrival: Ambulatory sg Triage Assessment: 00:19 Headache History: Denies prior headaches. General: Appears in no apparent distress. sg uncomfortable, well groomed, well developed, well nourished, Behavior is calm, cooperative, appropriate for age. Pain: Complains of pain in head Pain does not radiate. Quality of pain is described as aching, sharp, Also complains of nausea, sleeplessness. Neuro: Level of Consciousness is awake, alert, obeys commands, Oriented to person, place, situation, Speech is normal, Facial symmetry appears normal. Respiratory: Airway is patent Respiratory effort is even, unlabored, Respiratory pattern is regular, symmetrical. Derm: Skin is pink, warm \T\ dry. 00:51 Pain: Pain began 2-3 days ago. tl2 Historical: - Allergies: 00:14 No Known Allergies; sg - Home Meds: 00:50 Xanax 1 mg Oral tab 1 tab as needed for Generalized Anxiety Disorder [Active]; tl2 - PMHx: 00:14 Anxiety; sg - PSHx: 00:14 R knee; ; sg - Immunization history:: Adult Immunizations up to date. - Social history:: Smoking status: Patient denies any tobacco usage or history of. Screenin:35 Abuse screen: Denies threats or abuse. Nutritional screening: No deficits noted. tl2 Tuberculosis screening: No symptoms or risk factors identified. Fall Risk IV access (20 points). Assessment: 00:35 General: Appears in no apparent distress. uncomfortable, Behavior is cooperative, tl2 anxious. Pain: Complains of pain in head Pain currently is 9 out of 10 on a pain scale. Quality of pain is described as sharp, Is continuous. Neuro: Level of Consciousness is awake, alert, obeys commands, Oriented to person, place, time, situation. Cardiovascular: Denies chest pain. Respiratory: Airway is patent Respiratory effort is even, unlabored, Respiratory pattern is regular, symmetrical. GI: Reports nausea, vomiting. GI: Reports. GI: Reports lower abdominal pain. : No signs and/or symptoms were reported regarding the genitourinary system. : Reports. Derm: Skin is pink, warm \T\ dry. 01:27 Reassessment: Patient appears in no apparent distress at this time. pt appears to be tl2 sleeping, MD ordered to give pt a liter of fluid. 02:15 Reassessment: Patient appears in no apparent distress at this time. Patient and/or tl2 family updated on plan of care and expected duration. Pain level reassessed. will discharge pt after fluids are completed. 02:40 Reassessment: Patient appears in no apparent distress at this time. Patient and/or tl2 family updated on plan of care and expected duration. Pain level reassessed. Patient is alert, oriented x 3, equal unlabored respirations, skin warm/dry/pink. pt verbalized understanding of discharge instructions, need for follow up and prescription usage. Vital Signs: 00:25 BP 121 / 61 RA Supine (auto/pedi); Pulse 116 MON; Resp 20 S; Temp 99.2(A); Pulse Ox 98% ds4 on R/A; Weight 149.69 kg; Height 5 ft. 0 in. (152.40 cm); 01:15 BP 145 / 80; Pulse 110; Resp 16; Pulse Ox 94% on R/A; rv 01:27 BP 145 / 80; Pulse 110; Resp 18; Pulse Ox 94% on R/A; tl2 02:14 BP 133 / 83; Pulse 110; Resp 18; Pulse Ox 98% on R/A; Pain 5/10; tl2 00:25 Body Mass Index 64.45 (149.69 kg, 152.40 cm) ds4 Marcia Coma Score: 01:31 Eye Response: spontaneous(4). Verbal Response: oriented(5). Motor Response: obeys tw4 commands(6). Total: 15. ED Course: 00:13 Patient arrived in ED. ds1 00:14 Triage completed. sg 00:14 Arm band placed on. sg 00:18 Chema Beltran MD is Attending Physician. tw4 00:35 Patient has correct armband on for positive identification. Bed in low position. Call tl2 light in reach. Side rails up X2. Adult w/ patient. 00:40 Inserted saline lock: 22 gauge in right forearm, using aseptic technique. Blood ds4 collected. 00:49 Mouna Vazquez, JACKY is Primary Nurse. tl2 01:05 CT Head Brain wo Cont In Process Unspecified. EDMS 02:40 No provider procedures requiring assistance completed. IV discontinued, intact, tl2 bleeding controlled, No redness/swelling at site. Pressure dressing applied. Administered Medications: 00:47 Drug: Zofran (Ondansetron) 4 mg Route: IVP; Site: right forearm; tl2 01:30 Follow up: Response: No adverse reaction tl2 00:47 Drug: Benadryl 12.5 mg Route: IVP; Site: right forearm; tl2 01:30 Follow up: Response: No adverse reaction; Marked relief of symptoms tl2 00:47 Drug: Tylenol 1000 mg Route: PO; tl2 02:00 Follow up: Response: No adverse reaction tl2 00:47 Drug: TORadol 30 mg Route: IVP; Site: right forearm; tl2 01:30 Follow up: Response: No adverse reaction tl2 01:27 Drug: NS 0.9% 1000 ml Route: IV; Rate: 1 bolus; Site: right forearm; tl2 02:42 Follow up: IV Status: Completed infusion; IV Intake: 1000ml tl2 Intake: 02:42 IV: 1000ml; Total: 1000ml. tl2 Outcome: 01:32 Discharge ordered by . tw4 02:40 Discharged to home via wheelchair, with family. tl2 02:40 Condition: stable 02:40 Discharge instructions given to patient, Instructed on discharge instructions, follow up and referral plans. medication usage, Demonstrated understanding of instructions, follow-up care, medications, Prescriptions given X 3. 02:42 Patient left the ED. tl2 Signatures: Dispatcher [employer] EDMS Joe Sharp, RN RN Carolyn Rowley ds1 Paul Ya ds4 Mouna Vazquez RN RN tl2 Chema Beltran MD MD tw4 Jonathan Anthony RN RN rv Corrections: (The following items were deleted from the chart) 00:26 00:25 BP 121 / 61 Supine Auto R Arm Pedi; Pulse 116bpm; MonitorResp 20bpm; Spontaneous; ds4 Pulse Ox 98% RA; Temp 99.2F Axillary; ds4
--- NOTE | 2019-09-30 01:32 | EDPHYS ---
Physician Documentation [facility] Name: Reena Mclean Age: 54 yrs Sex: Female : 1965 Arrival Date: 09/30/2019 Time: 00:13 Bed 5 Private MD: ED Physician Chema Beltran HPI: 09/29 01:09 This 54 yrs old Female presents to ER via Ambulatory with complaints of tw4 Headache, Vomiting. 01:09 The patient complains of pain to the forehead. The patient describes the headache as tw4 pounding. Onset: The symptoms/episode began/occurred last night. Associated signs and symptoms: Pertinent positives: nausea, vomiting. Severity of symptoms: At its worst the pain was moderate, in the emergency department the pain is unchanged. Headache History: Denies prior headaches. The symptoms are alleviated by nothing. the symptoms are aggravated by nothing. The patient has not experienced similar symptoms in the past. Historical: - Allergies: 00:14 No Known Allergies; sg - Home Meds: 00:50 Xanax 1 mg Oral tab 1 tab as needed for Generalized Anxiety Disorder [Active]; tl2 - PMHx: 00:14 Anxiety; sg - PSHx: 00:14 R knee; ; sg - Immunization history:: Adult Immunizations up to date. - Social history:: Smoking status: Patient denies any tobacco usage or history of. ROS: 01:09 Constitutional: Negative for fever, chills, and weight loss, Eyes: Negative for injury, tw4 pain, redness, and discharge, Cardiovascular: Negative for chest pain, palpitations, and edema, Respiratory: Negative for shortness of breath, cough, wheezing, and pleuritic chest pain, Abdomen/GI: Negative for abdominal pain, nausea, vomiting, diarrhea, and constipation, Back: Negative for injury and pain. 01:09 Neuro: Positive for headache, Negative for altered mental status, dizziness, gait disturbance, tinnitus, tremor. Exam: 01:31 Constitutional: This is a well developed, well nourished patient who is awake, alert, tw4 and in no acute distress. Head/Face: Normocephalic, atraumatic. Chest/axilla: Normal chest wall appearance and motion. Nontender with no deformity. No lesions are appreciated. Cardiovascular: Regular rate and rhythm with a normal S1 and S2. No gallops, murmurs, or rubs. Normal PMI, no JVD. No pulse deficits. Respiratory: Lungs have equal breath sounds bilaterally, clear to auscultation and percussion. No rales, rhonchi or wheezes noted. No increased work of breathing, no retractions or nasal flaring. Abdomen/GI: Soft, non-tender, with normal bowel sounds. No distension or tympany. No guarding or rebound. No evidence of tenderness throughout. Skin: Warm, dry with normal turgor. Normal color with no rashes, no lesions, and no evidence of cellulitis. MS/ Extremity: Pulses equal, no cyanosis. Neurovascular intact. Full, normal range of motion. Neuro: Awake and alert, GCS 15, oriented to person, place, time, and situation. Cranial nerves II-XII grossly intact. Motor strength 5/5 in all extremities. Sensory grossly intact. Cerebellar exam normal. Normal gait. Vital Signs: 00:25 BP 121 / 61 RA Supine (auto/pedi); Pulse 116 MON; Resp 20 S; Temp 99.2(A); Pulse Ox 98% ds4 on R/A; Weight 149.69 kg; Height 5 ft. 0 in. (152.40 cm); 01:15 BP 145 / 80; Pulse 110; Resp 16; Pulse Ox 94% on R/A; rv 01:27 BP 145 / 80; Pulse 110; Resp 18; Pulse Ox 94% on R/A; tl2 02:14 BP 133 / 83; Pulse 110; Resp 18; Pulse Ox 98% on R/A; Pain 5/10; tl2 00:25 Body Mass Index 64.45 (149.69 kg, 152.40 cm) ds4 [place] Coma Score: 01:31 Eye Response: spontaneous(4). Verbal Response: oriented(5). Motor Response: obeys tw4 commands(6). Total: 15. MDM: 00:18 Patient medically screened. tw4 01:31 Differential diagnosis: sinusitis, subarachnoid bleed, subdural hematoma, vasomotor tw4 headache. Data reviewed: vital signs, nurses notes. Special discussion: I discussed with the patient/guardian in detail that at this point there is no indication for admission to the hospital. It is understood, however, that if the symptoms persist or worsen the patient needs to return immediately for re-evaluation. 09/29 00:26 Order name: CBC with Diff; Complete Time: 01:21 4 09/29 01:21 Interpretation: Normal except: WBC 14.0; NEUT A 12.2; LYM% 5.9; MALACHI% 87.3. tw4 09/29 00:26 Order name: CMP; Complete Time: 01:21 tw4 09/29 00:20 Order name: CT Head Brain wo Cont 4 Administered Medications: 00:47 Drug: Zofran (Ondansetron) 4 mg Route: IVP; Site: right forearm; tl2 01:30 Follow up: Response: No adverse reaction tl2 00:47 Drug: Benadryl 12.5 mg Route: IVP; Site: right forearm; tl2 01:30 Follow up: Response: No adverse reaction; Marked relief of symptoms tl2 00:47 Drug: Tylenol 1000 mg Route: PO; tl2 02:00 Follow up: Response: No adverse reaction tl2 00:47 Drug: TORadol 30 mg Route: IVP; Site: right forearm; tl2 01:30 Follow up: Response: No adverse reaction tl2 01:27 Drug: NS 0.9% 1000 ml Route: IV; Rate: 1 bolus; Site: right forearm; tl2 02:42 Follow up: IV Status: Completed infusion; IV Intake: 1000ml tl2 Disposition: 09/30/19 01:32 Discharged to Home. Impression: Headache, Vomiting. - Condition is Stable. - Discharge Instructions: Migraine Headache. - Prescriptions for Fiorinal 50- 325-40 mg Oral Capsule - take 1 capsule by ORAL route every 4 hours As needed - not to exceed 6 capsules per day; 20 capsule. Ibuprofen 800 mg Oral Tablet - take 1 tablet by ORAL route every 8 hours As needed take with food; 30 tablet. Zofran 4 mg Oral Tablet - take 1 tablet by ORAL route every 12 hours As needed; 6 tablet. - Medication Reconciliation Form, Thank You Letter, Antibiotic Education, Prescription Opioid Use form. - Follow up: Private Physician; When: Upon discharge from the Emergency Department; Reason: Recheck today's complaints, Continuance of care, Re-evaluation by your physician. - Problem is new. - Symptoms have improved. Signatures: Dispatcher [employer] EDMT Joe Sharp RN Mouna Vasquez RN RN tl2 Chema Beltran MD MD tw4 Corrections: (The following items were deleted from the chart) :32 01:32 09/30/2019 01:32 Discharged to Home. Impression: Headache. Condition is Stable. tw4 Forms are Medication Reconciliation Form, Thank You Letter, Antibiotic Education, Prescription Opioid Use. Follow up: Private Physician; When: Upon discharge from the Emergency Department; Reason: Recheck today's complaints, Continuance of care, Re-evaluation by your physician. Problem is new. Symptoms have improved. tw4 02:42 01:32 09/30/2019 01:32 Discharged to Home. Impression: Headache; Vomiting. Condition is tl2 Stable. Forms are Medication Reconciliation Form, Thank You Letter, Antibiotic Education, Prescription Opioid Use. Follow up: Private Physician; When: Upon discharge from the Emergency Department; Reason: Recheck today's complaints, Continuance of care, Re-evaluation by your physician. Problem is new. Symptoms have improved. tw4
[2019-09-30 03:03] VITALS: TEMP 99.2
[2019-09-30 03:08] VITALS: BP 133/83; O2SAT 98
--- NOTE | 2019-10-02 09:50 | RAD REPORT ---
EXAM DESCRIPTION: CT - Head Brain Wo Cont - 09/30/2019 5:39 am CLINICAL HISTORY: HEADACHE COMPARISON: None. TECHNIQUE: Axial unenhanced CT imaging of the brain. Reformatted coronal and sagittal images obtaine d. This examination was performed according to our departmental dose optimization program, which include s automated exposure control, adjustment of the mA and/or kV according to patient size and/or use of iterative reconstruction technique. FINDINGS: Ventricles are normal in size and contour. Extra-axial fluid spaces appear normal. Normal moya-white matter differentiation. No edema, hemorrhage, mass or midline shift. No acute major territ orial infarction. Low-lying cerebellar tonsils without ectopia. Normal vermis. Fourth ventricle is mi dline. Sella is empty. Normal appearance of the right and left globe, retro-orbital soft tissues, and bony orbits. Image fac ial bones appear intact. Skull base and calvarium are unremarkable. Mastoid air cells are clear bilat erally. Normal scalp soft tissues. IMPRESSION: 1. Negative CT brain. Electronically signed by: Maria Guadalupe De Los Santos DO 09/30/2019 1:15 AM CDT Due to temporary technical issues with the PACS/Fluency reporting system, reports are being signed by the in house radiologist without review as a courtesy to ensure prompt reporting. The interpreting r adiologist is fully responsible for the content of the report.
== END 2019-09-30 02:42 | disposition home or self-care (01) ==
LOC: ER 00:10
DX: R51 Headache (principal); R11.10 Vomiting, unspecified; F41.9 Anxiety disorder, unspecified
CPT/HCPCS: 36415; 70450; 80053; 85025; 96361; 96374; 96375; 99284; J1200; J2405; J7030

== ENCOUNTER 2020-12-19 15:26 | Inpatient (IN) | payer SELFPAY ==
--- NOTE | 2020-12-19 16:27 | RAD REPORT ---
EXAM DESCRIPTION: RAD - Chest Pa And Lat (2 Views) - 12/19/2020 4:20 pm CLINICAL HISTORY: COUGH Chest pain. COMPARISON: Chest Single View dated 09/08/2016; CHEST PA AND LAT 2 VIEW dated 03/18/2009; CHEST SINGL E VIEW dated 11/06/2008 FINDINGS: Moderate bilateral pulmonary opacities are present likely indicating underlying viral infe ction/bronchitis appear The heart is normal in size. No displaced fractures.
[2020-12-19] MEDS ORDERED: dexAMETHasone 10 MG/ML VIAL ONE (20:14)
[2020-12-19 20:33] LABS: Absolute Lymphocytes (CBC) 1.3 K/uL (0.7-4.9); Basophils % 0.4 % (0-1.3); Hematocrit 38.7 % (36.0-45.0); Lymphocytes % 24.2 % (15.3-44.8); MPV 8.2 fL (7.6-11.3); RBC Red Blood Cell Count 4.56 M/uL (3.86-4.86)
[2020-12-19 20:57] LABS: Albumin 3.1 g/dL (3.4-5.0); Bilirubin Direct 0.2 mg/dL (0-0.2); Bilirubin Total 0.5 mg/dL (0.2-1.0); C-Reactive Protein 37.2 mg/L (<3.00); Potassium 3.6 mmol/L (3.5-5.1); Protein, Total 7.9 g/dL (6.4-8.2)
[2020-12-19 21:45] LABS: Ferritin 1532.2 ng/mL (8-388)
--- NOTE | 2020-12-19 22:20 | P.HP ---
Certification for Inpatient Patient admitted to: Inpatient Patient will require the following post-hospital care: None Practitioner: I am a practitioner with admitting privileges, knowledge of patient current condition, hospital course, and medical plan of care. Services: Services provided to patient in accordance with Admission requirements found in Title 42 Section 412.3 of the Code of Federal Regulations Patient History Date of Service: 12/19/20 Primary Care Provider: None Reason for admission: COVID-19 pneumonia History of Present Illness: 55-year-old female with history of anxiety presents to the emerge department for shortness of breath. Patient tested positive for Covid on 12/14/2020. Patient is not vaccinated. On room air saturations were in the 80s labs were significant for C-reactive protein 37.2 ferritin 1532.2 chest x-ray demonstrated moderate bilateral pulmonary opacities likely underlying viral infection/pneumonia. Patient on 3 to 4 L per nasal cannula saturating in the low to mid 90s at this time ED progress is to admit for further evaluation and management of COVID-19 pneumonia with hypoxia. Allergies No Known Drug Allergies Allergy (Unverified 09/22/14 07:00) Unknown No Known Allerg Allergy (Uncoded 09/08/16 03:07) Unknown No Known Allergies Allergy (Uncoded 11/03/17 21:01) Unknown Home Medications: Alprazolam [Xanax] 1 mg PO Q8H PRN #20 tablet 08/27/13 Hydrocodone 10/APAP 325 [Moore 10/325*] 1 tab PO Q4HP PRN #14 tab 08/27/13 levoFLOXacin [Levaquin*] 750 mg PO DAILY #14 tab 08/27/13 - Past Medical/Surgical History Diabetic: No -: migraine -: Anxiety -: -: repair of right knee ligaments -: Tubal ligation Psychosocial/ Personal History: Unemployed, lives at home with her daughter - Family History Father -: Diabetes Mother -: Hypertension, Diabetes - Social History Smoking Status: Never smoker Alcohol use: No CD- Drugs: No Caffeine use: Yes Place of Residence: Home Review of Systems 10-point ROS is otherwise unremarkable Respiratory: Cough, Shortness of Breath, SOB with Excertion, As per HPI Physical Examination - Physical Exam General: Alert, In no apparent distress, Obese HEENT: Atraumatic, PERRLA, Mucous membr. moist/pink, EOMI, Sclerae nonicteric Neck: Supple, 2+ carotid pulse no bruit, No LAD, Without JVD or thyroid abnormality Respiratory: Diminished Cardiovascular: Regular rate/rhythm, Normal S1 S2 Gastrointestinal: Normal bowel sounds, No tenderness Musculoskeletal: No tenderness Integumentary: No rashes Neurological: Normal gait, Normal speech, Normal strength at 5/5 x4 extr, Normal tone, Normal affect Lymphatics: No axilla or inguinal lymphadenopathy - Studies Laboratory Data (last 24 hrs) 12/19/20 19:48: Total Bilirubin Cancelled, AST Cancelled, ALT Cancelled, Alkaline Phosphatase Cancelled 12/19/20 19:48: Sodium 140, Potassium 3.6, BUN 7, Creatinine 0.84, Glucose 106, Total Bilirubin 0.5, AST 91 H, ALT 71, Alkaline Phosphatase 79 12/19/20 19:48: WBC 5.40, Hgb 12.7, Hct 38.7, Plt Count 224 Assessment and Plan - Plan Assessment: Acute hypoxic respiratory failure secondary to COVID-19 pneumonia complicated with obesity Anxiety Plan: Acute hypoxic respiratory failure secondary to COVID-19 pneumonia complicated with obesity: Trend CRP, ferritin, D-dimer levels. IV steroids, oral supplements, ivermectin, pulmonology consulted, daily room air saturations, room air saturations for home oxygen. If patient maintains current respiratory status or improves can likely be discharged home oxygen in the next 24 to 48 hours. Anxiety: As needed medications. DVT PPX: Lovenox Code status: Full Discharge Plan: Home Plan to discharge in: 48 Hours - Advance Directives Does patient have a Living Will: No Does patient have a Durable POA for Healthcare: No - Code Status/Comfort Care Code Status Assessed: Yes (Full code) Critical Care: No Time Spent Managing Pts Care (In Minutes): 55
--- NOTE | 2020-12-19 22:27 | ER ---
Nurse's Notes [facility] Name: Reena Mclean Age: 55 yrs Sex: Female : 1965 Arrival Date: 12/19/2020 Time: 15:28 Bed 9 Private MD: Diagnosis: Coronavirus infection, unspecified Presentation: 12/19 16:31 Chief complaint: Patient states: SOB, cough, Diarrhea, nausea, vomiting since 12/14 kg COVID + 12/14. Coronavirus screen: Vaccine status: Patient reports being unvaccinated. Client denies travel out of the [place] in the last 14 days. At this time, unable to obtain information related to travel outside the [place] Client presents with at least one sign or symptom that may indicate coronavirus-19. Standard/surgical mask placed on the client. Provider contacted for isolation considerations. Client reports previous positive COVID test result. Date of collection: December 14, 2020. Ebola Screen: Patient negative for fever greater than or equal to 101.5 degrees Fahrenheit, and additional compatible Ebola Virus Disease symptoms Patient denies exposure to infectious person. Patient denies travel to an Ebola-affected area in the 21 days before illness onset. Initial Sepsis Screen: Does the patient meet any 2 criteria? RR > 20 per min. No. Patient's initial sepsis screen is negative. Does the patient have a suspected source of infection? Yes: Productive cough/pneumonia. Risk Assessment: Do you want to hurt yourself or someone else? Patient reports no desire to harm self or others. Onset of symptoms was December 14, 2020. 16:31 Method Of Arrival: Wheelchair kg 16:31 Acuity: MONSERRAT 3 kg Triage Assessment: 16:35 General: Appears in no apparent distress. Behavior is calm, cooperative, appropriate kg for age, quiet. Pain: Complains of pain in Generalized. Respiratory: Reports shortness of breath at rest on exertion cough that is productive, Onset: The symptoms/episode began/occurred gradually, the patient has moderate shortness of breath. 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 - Social history:: Smoking status: Patient denies any tobacco usage or history of. Screenin:36 Abuse screen: Denies threats or abuse. Denies injuries from another. Nutritional kg screening: No deficits noted. Tuberculosis screening: No symptoms or risk factors identified. Fall Risk None identified. Assessment: 16:36 Respiratory: Airway is patent Respiratory effort is. kg 19:16 Reassessment: attempted to call patient back from [facility], no answer. ms4 19:59 Cardiovascular: No deficits noted. Rhythm is sinus tachycardia. Respiratory: Reports ms4 shortness of breath cough that is labored breathing Breath sounds are diminished bilaterally. 22:45 General: Appears in no apparent distress. Behavior is calm, cooperative. Pain: Denies ms4 pain. Neuro: No deficits noted. Respiratory: Reports shortness of breath cough that is Airway is patent Respiratory effort is even, labored, Breath sounds are diminished bilaterally. 22:46 Reassessment: report given to samuel mukherjee patient to be transported upstairs via tx4 wheelchair. Vital Signs: 16:31 BP 109 / 71; Pulse 106; Resp 21; Temp 97.7(TE); Pulse Ox 90% on R/A; Weight 149.69 kg kg (R); Height 5 ft. 0 in. (152.40 cm) (R); Pain 10/10; 19:59 BP 138 / 74; Pulse 102; Resp 24; Pulse Ox 85% on R/A; Pain 0/10; ms4 19:59 Pulse Ox 97% on 4 lpm NC; ms4 22:41 BP 124 / 74; Pulse 108; Resp 20; Temp 98; Pulse Ox 96% on 4 lpm NC; Pain 0/10; ms4 16:31 Body Mass Index 64.45 (149.69 kg, 152.40 cm) kg ED Course: 15:28 Patient arrived in ED. rg4 16:19 XRAY Chest Pa And Lat (2 Views) In Process Unspecified. EDMS 16:34 Triage completed. kg 16:35 Arm band placed on right wrist. kg 16:36 Patient has correct armband on for positive identification. kg 16:36 No provider procedures requiring assistance completed. kg 19:21 Yonny Blunt PA is PHCP. [facility] 19:21 Hansel Sheth MD is Attending Physician. [facility] 19:36 Attending Physician role handed off by Hansel Sheth MD [facility] 19:36 Grabiel Godfrey MD is Attending Physician. [facility] 22:26 Filiberto Hopkins MD is Hospitalizing Provider. [facility] 22:46 Inserted saline lock: 20 gauge in left antecubital area, using aseptic technique. Blood ms4 collected. Administered Medications: 19:51 Drug: Decadron - Dexamethasone 10 mg Route: IVP; Site: left antecubital; ms4 Outcome: 22:27 Decision to Hospitalize by Provider. m 23:23 Patient left the ED. ms4 Signatures: Dispatcher [employer] EDMS Grabiel Godfrey MD MD cha Mickail, Joel, PA PA jmm Garcia, Rubi rg4 Yuni Corea, RN RN kg Shanon Brooks RN RN ms4
--- NOTE | 2020-12-19 22:28 | EDPHYS ---
Physician Documentation [facility] Name: Reena Mclean Age: 55 yrs Sex: Female : 1965 Arrival Date: 12/19/2020 Time: 15:28 Bed 9 Private MD: Grabiel Silva HPI: 12/19 22:31 This 55 yrs old Female presents to ER via Wheelchair with complaints of Cough, jmm Breathing Difficulty, Covid+. 22:31 Onset: The symptoms/episode began/occurred gradually, 1 week(s) ago. Modifying factors: jmm The symptoms are alleviated by nothing, the symptoms are aggravated by exertion. Associated signs and symptoms: Pertinent positives: fever. The patient has not experienced similar symptoms in the past. 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 - Social history:: Smoking status: Patient denies any tobacco usage or history of. ROS: 22:31 Constitutional: Positive for body aches, chills, fatigue. jmm 22:31 Respiratory: Positive for cough, shortness of breath. 22:31 All other systems are negative. Exam: 22:31 Constitutional: This is a well developed, well nourished patient who is awake, alert, jmm and in no acute distress. Head/Face: atraumatic. Eyes: EOMI, no conjunctival erythema appreciated ENT: Moist Mucus Membranes Neck: Trachea midline, Supple Chest/axilla: Normal chest wall appearance and motion. Cardiovascular: Regular rate and rhythm. No edema appreciated Respiratory: Normal respirations, no respiratory distress appreciated Abdomen/GI: Non distended, soft Back: Normal ROM Skin: General appearance color normal MS/ Extremity: Moves all extremities, no obvious deformities appreciated, no edema noted to the lower extremities Neuro: Awake and alert, normal gait Psych: Behavior is normal, Mood is normal, Patient is cooperative and pleasant Vital Signs: 16:31 BP 109 / 71; Pulse 106; Resp 21; Temp 97.7(TE); Pulse Ox 90% on R/A; Weight 149.69 kg kg (R); Height 5 ft. 0 in. (152.40 cm) (R); Pain 10/10; 19:59 BP 138 / 74; Pulse 102; Resp 24; Pulse Ox 85% on R/A; Pain 0/10; ms4 19:59 Pulse Ox 97% on 4 lpm NC; ms4 22:41 BP 124 / 74; Pulse 108; Resp 20; Temp 98; Pulse Ox 96% on 4 lpm NC; Pain 0/10; ms4 16:31 Body Mass Index 64.45 (149.69 kg, 152.40 cm) kg MDM: 19:36 Patient medically screened. [facility] 22:25 Data reviewed: vital signs, nurses notes. Counseling: I had a detailed discussion with demetris the patient and/or guardian regarding: the historical points, exam findings, and any diagnostic results supporting the discharge/admit diagnosis, lab results, radiology results, the need for further work-up and treatment in the hospital. ED course: I discussed the patient with Sravan Carreon whom accepted the patient to Dr. Hopkins's service. . 12/19 19:37 Order name: CBC with Diff; Complete Time: 20:47 [facility] 12/19 19:37 Order name: BMP; Complete Time: 21:50 [facility] 12/19 19:37 Order name: D-Dimer; Complete Time: 20:47 [facility] 12/19 19:42 Order name: Lactate; Complete Time: 21:43 [facility] 12/19 15:53 Order name: XRAY Chest Pa And Lat (2 Views); Complete Time: 19:36 kg 12/19 19:37 Order name: Saline Lock; Complete Time: 19:49 [facility] 12/19 19:42 Order name: Procalcitonin; Complete Time: 21:06 [facility] 12/19 20:16 Order name: Liver (Hepatic) Function; Complete Time: 21:50 EDID 12/19 20:16 Order name: C-Reactive Protein; Complete Time: 21:50 EDMS 12/19 20:16 Order name: Ferritin; Complete Time: 21:50 EDMS Administered Medications: 19:51 Drug: Decadron - Dexamethasone 10 mg Route: IVP; Site: left antecubital; ms4 Disposition: 12/20 08:19 Co-signature as Attending Physician, Grabiel Godfrey MD I agree with the assessment and sudha plan of care. Disposition Summary: 12/19/20 22:27 Hospitalization Ordered Hospitalization Status: Inpatient Admission [facility] Provider: Filiberto Hopkins Location: Telemetry/MedSurg (Inpatient) jmm Condition: Stable jmm Problem: new jmm Symptoms: are unchanged jmm Bed/Room Type: Standard [facility] Room Assignment: 428(12/19/20 22:39) cg Diagnosis - Coronavirus infection, unspecified [facility] Forms: - Medication Reconciliation Form jmm - SBAR form jm Signatures: Dispatcher [employer] EDMS Grabiel Godfrey MD MD cha Mickail, Joel, PA PA jmm Garcia, Cindy, RN RN Yuni Corea RN RN Shanon Allen RN RN ms4 Corrections: (The following items were deleted from the chart) 12/19 20:15 19:42 C-REACTIVE PROTEIN+C.LAB.BRZ ordered. EDMS EDMS 20:15 19:42 FERRITIN+C.LAB.BRZ ordered. EDMS EDMS 20:15 19:42 HEPATIC FUNCTION+C.LAB.BRZ ordered. EDID EDMS 22:39 22:27 jmm cg
[2020-12-19] MEDS ORDERED: ACETAMINOPHEN 500 MG TAB PO PRN (23:22)
[2020-12-19] MEDS ORDERED: MELATONIN 5 MG TABLET PO PRN (23:22)
[2020-12-19] MEDS ORDERED: ONDANSETRON 4 MG/2 ML VIAL IV PRN (23:22)
[2020-12-20] MEDS: BENZONATATE 100 MG CAP PO PRN ×3 (00:25→19:30)
[2020-12-20] MEDS ORDERED: ALPRAZOLAM 1 MG TABLET PO PRN (01:43)
[2020-12-20 01:59] VITALS: BMI 64.4
[2020-12-20 06:05] LABS: Absolute Lymphocytes (CBC) 0.8 K/uL (0.7-4.9); Basophils % 0.2 % (0-1.3); Hematocrit 38.1 % (36.0-45.0); Lymphocytes % 22.1 % (15.3-44.8); MPV 8.1 fL (7.6-11.3); RBC Red Blood Cell Count 4.52 M/uL (3.86-4.86)
[2020-12-20 06:26] LABS: ALT/SGPT 69 U/L (12-78); AST/SGOT 69 U/L (15-37); Alkaline Phosphatase 80 U/L (45-117); BUN Blood Urea Nitrogen 6 mg/dL (7-18); Bicarbonate 27 mmol/L (21-32); Bilirubin Total 0.4 mg/dL (0.2-1.0); Ferritin 1501.8 ng/mL (8-388); Glucose Level 169 mg/dL (74-106); HDL Cholesterol 34 mg/dL (40-60); LDL Cholesterol, Calculated 54 (<130); Sodium Level 140 mmol/L (136-145); Thyroid Stimulating Hormone 0.432 uIU/mL (0.360-3.740)
[2020-12-20 07:06] LABS: Urine Appearance CLEAR (Clear); Urine Bilirubin NEGATIVE (Negative); Urine Blood NEGATIVE (Negative); Urine Color YELLOW (Yellow); Urine Glucose NEGATIVE (Negative); Urine Protein TRACE (Negative); Urine pH 6.5 (5.0-7.0)
[2020-12-20 07:13] LABS: Urine Microscopic Reflex ORDER UMIC
--- NOTE | 2020-12-20 07:14 | P.PN ---
Subjective Date of Service: 12/20/20 Primary Care Provider: None Chief Complaint: COVID-19 pneumonia Subjective: Improving (Feeling better with oxygen supplementation. Still dyspneic with movement. Otherwise overall feeling better) Review of Systems 10-point ROS is otherwise unremarkable Physical Examination - Vital Signs Temperature: 97.2 F Blood Pressure: 115/73 Pulse: 98 Respirations: 20 Pulse Ox (%): 96 - Studies Laboratory Data (last 24 hrs) 12/19/20 19:48: Total Bilirubin Cancelled, AST Cancelled, ALT Cancelled, Alkaline Phosphatase Cancelled 12/19/20 19:48: Sodium 140, Potassium 3.6, BUN 7, Creatinine 0.84, Glucose 106, Total Bilirubin 0.5, AST 91 H, ALT 71, Alkaline Phosphatase 79 12/19/20 19:48: WBC 5.40, Hgb 12.7, Hct 38.7, Plt Count 224 Assessment & Plan Physician Review Additional Text: Physical exam GEN: Alert, oriented, NAD, morbidly obese HEENT: Normal conjunctiva, sclera anicteric CV: Regular rate and rhythm, trace pedal edema Pulm: Nonlabored respiration on 5L NC ABD: Soft, nontender, nondistended Neuro: Normal speech, normal affect Problem list Acute hypoxic respiratory failure secondary to COVID-19 pneumonia complicated with obesity Super morbid obesity Anxiety Plan: Acute hypoxic respiratory failure secondary to COVID-19 pneumonia complicated with obesity: Elevated inflammatory markers, significantly elevated ferritin continue treatment per protocol, IV steroids, vitamin supplementation, oxygen supplementation Wean O2 as tolerated Pulmonology consulted Code: full Dispo: anticipate dc home in 1-2 days with home O2 Patient states her daughter has similar symptoms, but did not require oxygen. She is very worried about her at home alone. Time Spent Managing Pts Care (In Minutes): 40
[2020-12-20 08:28] LABS: Urine Bacteria <20 /HPF (<20); Urine RBC <5 /HPF (NONE SEEN)
[2020-12-20] MEDS: THIAMINE HCL 100 MG TABLET PO SCH (09:00)
[2020-12-20] MEDS: VITAMIN D 1000 UNIT TAB PO SCH (09:00)
[2020-12-20] MEDS: ENOXAPARIN 40 MG/0.4 ML SQ SCH (09:00)
[2020-12-20] MEDS ORDERED: IVERMECTIN 3 MG TABLET PO SCH (09:00)
[2020-12-20] MEDS ORDERED: GUAIFENESIN/CODEINE 5ML UCUP PO SCH (09:00)
[2020-12-20] MEDS: ASCORBIC ACID 500 MG TABLET PO SCH ×4 (09:00→19:30)
[2020-12-20] MEDS: ZINC SULFATE 220 MG CAP PO SCH (09:00)
[2020-12-20] MEDS: ASPIRIN EC 81 MG TAB PO SCH (09:00)
[2020-12-20] MEDS: METHYLPREDNISOLONE 40 MG INJ IV SCH ×2 (09:00→19:30)
[2020-12-20] MEDS: GUAIFENESIN/CODEINE 5ML UCUP PO PRN (15:07)
[2020-12-21 04:37] LABS: Absolute Lymphocytes (CBC) 1.1 K/uL (0.7-4.9); Basophils % 0.2 % (0-1.3); Lymphocytes % 12.2 % (15.3-44.8); MPV 8.3 fL (7.6-11.3); RBC Red Blood Cell Count 4.69 M/uL (3.86-4.86)
[2020-12-21 05:43] LABS: Bilirubin Total 0.5 mg/dL (0.2-1.0); C-Reactive Protein 19.5 mg/L (<3.00); Ferritin 1465.5 ng/mL (8-388); Potassium 3.7 mmol/L (3.5-5.1)
[2020-12-21] MEDS: ZINC SULFATE 220 MG CAP PO SCH (08:23)
[2020-12-21] MEDS: GUAIFENESIN/CODEINE 5ML UCUP PO PRN (08:23)
[2020-12-21] MEDS: THIAMINE HCL 100 MG TABLET PO SCH (08:23)
[2020-12-21] MEDS: ASCORBIC ACID 500 MG TABLET PO SCH ×2 (08:24→12:55)
[2020-12-21] MEDS: ASPIRIN EC 81 MG TAB PO SCH (08:24)
[2020-12-21] MEDS: VITAMIN D 1000 UNIT TAB PO SCH (08:24)
[2020-12-21] MEDS: ENOXAPARIN 40 MG/0.4 ML SQ SCH (08:24)
[2020-12-21] MEDS: METHYLPREDNISOLONE 40 MG INJ IV SCH (08:24)
[2020-12-21] MEDS ORDERED: POTASSIUM CL SA 10 MEQ TAB PO ONE (09:00)
[2020-12-21 13:15] VITALS: O2SAT 93
[2020-12-21 16:48] VITALS: BP 115/63; TEMP 98.3
--- NOTE | 2020-12-21 17:13 | P.DS ---
Admission Date: 12/19/20 Discharge Date: 12/21/20 Primary Care Provider: None Disposition: ROUTINE DISCHARGE Discharge Condition: GOOD Reason for Admission: COVID-19 pneumonia Consultations: Pulmonology - Dr. Person Procedures: CXR (12/19): Moderate bilateral pulmonary opacities are present likely indicating underlying viral infection/bronchitis appear The heart is normal in size. No displaced fractures. Problem List Acute hypoxic respiratory failure secondary to COVID-19 pneumonia complicated with obesity Anxiety Brief History of Present Illness: 55-year-old female with history of anxiety [facility] for shortness of breath. Patient tested positive for Covid on 12/14/2020. Patient is not vaccinated. On room air saturations were in the 80s labs were significant for C-reactive protein 37.2 ferritin 1532.2 chest x-ray demonstrated moderate bilateral pulmonary opacities likely underlying viral infection/pneumonia. Patient on 3 to 4 L per nasal cannula saturating in the low to mid 90s at this time ED progress is to admit for further evaluation and management of COVID-19 pneumonia with hypoxia. Hospital Course: Patient never required > 4L NC and continued to improve. Her inflammatory markers improved as well. Treated with steroids, vitamin supplementation, and oxygen supplementation. Discharged home to continue this treatment. Return precautions given. Vital Signs/Physical Exam: Temp Pulse Resp BP Pulse Ox 98.3 F 92 H 20 115/63 93 12/21/20 16:00 12/21/20 16:00 12/21/20 16:00 12/21/20 16:00 12/21/20 16:00 General: Alert, In no apparent distress, Oriented x3 HEENT: Sclerae nonicteric Respiratory: Other (nonlabored respirations on room air) Cardiovascular: No edema, Regular rate/rhythm Gastrointestinal: Soft and benign, Non-distended, No tenderness Musculoskeletal: No erythema, No tenderness Integumentary: No rashes Neurological: Normal speech, Normal affect Laboratory Data at Discharge: WBC 8.80 K/uL (4.3-10.9) D 12/21/20 04:15 Hgb 13.3 g/dL (12.0-15.0) 12/21/20 04:15 Hct 40.0 % (36.0-45.0) 12/21/20 04:15 Plt Count 281 K/uL (152-406) 12/21/20 04:15 Sodium 139 mmol/L (136-145) 12/21/20 04:15 Potassium 3.7 mmol/L (3.5-5.1) 12/21/20 04:15 BUN 15 mg/dL (7-18) 12/21/20 04:15 Creatinine 0.90 mg/dL (0.55-1.3) 12/21/20 04:15 Glucose 196 mg/dL (74-106) H 12/21/20 04:15 Total Bilirubin 0.5 mg/dL (0.2-1.0) 12/21/20 04:15 AST 51 U/L (15-37) H 12/21/20 04:15 ALT 58 U/L (12-78) 12/21/20 04:15 Alkaline Phosphatase 78 U/L (45-117) 12/21/20 04:15 Triglycerides 104 mg/dL (<150) 12/20/20 05:36 Cholesterol 109 mg/dL (<200) 12/20/20 05:36 HDL Cholesterol 34 mg/dL (40-60) L 12/20/20 05:36 Cholesterol/HDL Ratio 3.21 12/20/20 05:36 Home Medications: Elderberry Fruit and Flower [Black Elderberry 575 mg Cap] 1 each PO DAILY 12/20/20 Ascorbic Acid [Vitamin C] 500 mg PO QID #120 tab.chew 12/21/20 Aspirin [Aspirin EC 81 MG] 81 mg PO DAILY 30 Days #30 tablet. 12/21/20 Cholecalciferol (Vitamin D3) [Vitamin D 1000 Iu Tab] 4,000 unit PO DAILY #120 tab 12/21/20 Guaifen W/Codeine Syrup [ROBITUSSIN A-C Syrup*] 5 ml PO Q8H PRN 5 Days #75 ml 12/21/20 Zinc Sulfate [Zinc Sulfate*] 220 mg PO DAILY 30 Days #30 cap 12/21/20 clonazePAM [Klonopin] 0.5 mg PO Q12H PRN #5 tablet 12/21/20 predniSONE [Prednisone*] 20 mg PO SEECOM 14 Days #21 tab 12/21/20 New Medications: Aspirin [Aspirin EC 81 MG] 81 mg PO DAILY 30 Days #30 tablet. clonazePAM [Klonopin] 0.5 mg PO Q12H PRN #5 tablet PRN Reason: Anxiety predniSONE [Prednisone*] 20 mg PO SEECOM 14 Days #21 tab Guaifen W/Codeine Syrup [ROBITUSSIN A-C Syrup*] 5 ml PO Q8H PRN 5 Days #75 ml PRN Reason: Cough Ascorbic Acid [Vitamin C] 500 mg PO QID #120 tab.chew Cholecalciferol (Vitamin D3) [Vitamin D 1000 Iu Tab] 4,000 unit PO DAILY #120 tab Zinc Sulfate [Zinc Sulfate*] 220 mg PO DAILY 30 Days #30 cap Physician Discharge Instructions: You were found to have COVID-19 pneumonia. You had improvement with steroids, vitamin supplementation, and oxygen supplementation. You are discharged home to continue with this treatment. Recommend taking 81mg aspirin daily for 30 days. Follow up with Dr. Person ([employer]) in ~1 week. Call his office to schedule the appointment. Diet: Regular Activity: Ad aj Followup: Leonard Person MD [ACTIVE - CAN ADMIT] - 1 Week (Call for appointment. ) NONE,NONE [Primary Care Provider] - Time spent managing pt's care (in minutes): 45
== END 2020-12-21 16:30 | disposition home or self-care (01) | DRG 177 ==
LOC: ER 15:26 → ERHOLD 22:09 → 4TH 22:50
PROVIDERS: ADMIT Hospitalist; ATTEND Hospitalist
DX: U07.1 COVID-19 (principal); J12.82 Pneumonia due to coronavirus disease 2019; J96.01 Acute respiratory failure with hypoxia; Z68.44 Body mass index [BMI] 60.0-69.9, adult; F41.9 Anxiety disorder, unspecified; E66.01 Morbid (severe) obesity due to excess calories
CPT/HCPCS: 36415; 71046; 80048; 80053; 80061; 80076; 81003; 81015; 82728; 82947; 83605; 84145; 84439; 84443; 85025; 85379; 86140; 87086; 87088; 94760; 96374; 99284; J1100; J1650; J2920